=== PATIENT | female | born 1985 | race African-American/Black ===

== ENCOUNTER 2018-06-09 21:56 | Inpatient (IN) | END 2018-06-10 18:00 | disposition home or self-care (01) | DRG 831 ==

== ENCOUNTER 2018-06-19 12:26 | Outpatient (CLI) | END 2018-06-19 15:50 | disposition home or self-care (01) ==

== ENCOUNTER 2018-07-01 16:53 | Outpatient (CLI) | END 2018-07-01 18:28 | disposition home or self-care (01) ==

== ENCOUNTER 2018-07-11 16:46 | Outpatient (CLI) | END 2018-07-11 22:57 | disposition home or self-care (01) ==

== ENCOUNTER 2018-08-04 07:08 | Inpatient (IN) | payer OTHER ==
[~2018-08-04] VITALS: Ht 175.3 cm; Wt 100.2 kg
[~2018-08-04 07:08] MED LIST: PNV11TAB PO
[2018-08-04 07:31] VITALS: Ht 175.3 cm; Wt 100.2 kg
[2018-08-04 07:32] VITALS: BP 122/77; PULSE 108; RESP 20
[2018-08-04] MEDS ORDERED: LACTATED RINGER'S 1,000 ML IV SCH ×2 (07:35→09:34)
[2018-08-04] MEDS ORDERED: CARBOPROST 250 MCG INJ IM PRN ×2 (08:00→10:00)
[2018-08-04] MEDS ORDERED: OXYTOCIN 30 UNITS/LR 500 ML IV SCH ×2 (08:00→09:34)
[2018-08-04] MEDS ORDERED: MISOPROSTOL 200 MCG TAB PR PRN ×2 (08:00→10:00)
[2018-08-04] MEDS ORDERED: OXYTOCIN 30 UNITS/LR 500 ML IV PRN ×2 (08:00→10:00)
[2018-08-04] MEDS ORDERED: METHYLERGONOVINE 0.2 MG INJ IM PRN ×2 (08:00→10:00)
[2018-08-04] MEDS ORDERED: CEFAZOLIN 2 GM/50 ML (PMX) 50 ML IVPB SCH (08:00)
--- NOTE | 2018-08-04 08:58 | PREOPHP ---
DATE OF ADMISSION: 08/04/2018 The patient is coming on the for a section. HISTORY OF PRESENT ILLNESS: This is a 33-year-old female, 1, para 0, with a twin , which is a dichorionic, diamniotic . The patient had seen me since 26 weeks of her at which time she was placed on Zoloft for some depression and she had been seen by the perinatologist, Dr. Baldwin and she had been referred to cardiology also for PVCs and she had been having a history of 2 fibroids, one 5.5 cm, 3.5 cm. She has been otherwise okay. She has been having NSTs and BPPs twice a week since 32 weeks of her for evaluation of the twin . She had no complications. ALLERGIES: SHE IS ALLERGIC TO MACROBID. SOCIAL HISTORY: She has no history of drugs or alcohol or smoking. The patient is at this time is being admitted for 37 weeks for delivery of twin , dichorionic, diamniotic, with second baby breech in presentation, first baby cephalic. FAMILY HISTORY: Diabetes on her father's side and hypertension on her mother. Otherwise, her history has been very healthy and she is having 2 twin girls. Her last period was 11/17/2017. The due date is 08/24/2018. REVIEW OF SYSTEMS: Noncontributory at this time. At the beginning of the , she was found to have PVCs that resolved. PHYSICAL EXAMINATION: VITAL SIGNS: The patient has a prepregnancy weight of 180 pounds and at this time, she is 223 pounds, 43 pound weight gain. The blood pressure at the time of being seen in my office was 114/75. At this time, has been a little bit to 128/80 with no protein in the urine, no signs of preeclampsia. The pulse is 80, respirations 16. HEAD AND NECK: Normal. CHEST: Clear. HEART: Normal sinus rhythm. LUNGS: Clear. BREASTS: Soft, nontender, no masses. ABDOMEN: Soft. Uterus at term with baby A cephalic, baby B breech, and both with normal heart tones. PELVIC: Cervix is closed, long and posterior with membranes intact and no presentation in the pelvis. EXTREMITIES: Normal with normal pulses, no edema. Normal reflexes. DIAGNOSES: A 37 weeks twin , dichorionic diamniotic with abnormal presentation, fibroid uterus. PLAN: She is undergoing a primary section. She has been advised of the possible risks and possible complications of the surgery with her alternatives and options. Written information was provided. She had no more questions and agreed to go ahead with the procedure. The patient was diagnosed recently being O negative with anti-c and anti-e antibodies and the significance of this will be seen at since at this time there are no signs that the babies have any problems and the advise of delivery is because twin with abnormal presentation and also for these antibodies not to be worsening in her system. The procedure is primary low segment transverse section. She is agreeing to go ahead with the procedure. Dictated By: LEBRON PEPPER/SHANNAN Conf#: [id number] DID#: [id number] MTDD
[2018-08-04] MEDS ORDERED: CITRIC ACID/NA CITRATE 30 ML CUP PO ONE (09:00)
--- NOTE | 2018-08-04 09:38 | PREAC ---
Date/Time of Note Date/Time of Note DATE: 08/04/18 TIME: 09:37 Anesthesia Eval and Record Evaluation Time Pre-Procedure Interview DATE: 08/04/18 TIME: 09:37 Age 33 Sex female NPO: 8 hrs Preoperative diagnosis twin Planned procedure c section Past Medical History Past Medical History: Includes Surgery & Anesthesia Issues No known issue Meds Anticoagulation: No Beta Candice within 24 hr: No Reason Beta Candice not given: Pt. not on B-Candice Reported Medications [id number] ( 19) 1 Each Tablet, 1 TAB PO DAILY, TAB 08/01/18 Current Medications Lactated Ringer's 1,000 ml @ 125 mls/hr Q8H IV Last administered on 08/04/18at 08:06; Admin Dose 125 MLS/HR; Start 08/04/18 at 07:35 Cefazolin Sodium/ Dextrose 50 ml @ 100 mls/hr ONCE IVPB ; Start 08/04/18 at 08:00 Oxytocin/Lactated Ringer's 500 ml @ 125 mls/hr POST IV ; Start 08/04/18 at 08:00 Oxytocin/Lactated Ringer's 500 ml @ 0 mls/hr ONCE PRN IV VAGINAL BLEEDING; Start 08/04/18 at 08:00 Methylergonovine Maleate (Methergine) 0.2 mg ONCE PRN IM VAGINAL BLEEDING; Start 08/04/18 at 08:00 Carboprost Tromethamine (Hemabate) 250 mcg ONCE PRN IM VAGINAL BLEEDING; Start 08/04/18 at 08:00 Misoprostol (Cytotec) 1,000 mcg ONCE PRN VA VAGINAL BLEEDING; Start 08/04/18 at 08:00 Meds reviewed: Yes Allergies Coded Allergies: nitrofurantoin (Verified Allergy, Unknown, 06/09/18) Allergies Reviewed: Yes Labs/Studies Labs Reviewed: Reviewed by anesthesiologist Result Diagram: 08/04/18 0730 Laboratory Tests 08/04/18 07:30 test: Positive Studies: ECG (n/a), CXR (n/a) Pre-procedure Exam Last vitals Vital Signs Date Temp Pulse Resp B/P (MAP) Pulse Ox O2 O2 Flow FiO2 Time Delivery Rate 08/04/18 98.7 108 20 122/77 Room Air 07:32 (92) Airway: Adequate mouth opening Mallampati: Mallampati I Teeth: Normal Lung: Normal Heart: Normal ASA Physical Status ASA physical status: 2 Emergency: None Planned Anesthetic Neuraxial: Spinal Planned Pain Management Sub-arachniod narcotics Pre-operative Attestations Prior to commencing anesthesia and surgery, the patient was re-evaluated, there was verification of: *The patient's identity *The results of appropriate recent lab work and preoperative vital signs *The above evaluation not changing prior to induction *Anesthetic plan, risk benefits, alternative and complications discussed with patient/family; questions answered; patient/family understands, accepts and wishes to proceed. CALLIE GALAN MD Aug 04, 2018 09:38
[2018-08-04] MEDS ORDERED: LANOLIN HPA 1 PKT TOP PRN (10:00)
[2018-08-04] MEDS ORDERED: METHYLERGONOVINE 0.2 MG TAB PO PRN (10:00)
[2018-08-04] MEDS ORDERED: NA PHOSPHATE/BIPHOS 133 ML ENEMA PR PRN (10:00)
[2018-08-04] MEDS: CEFAZOLIN 2 GM/50 ML (PMX) 50 ML IVPB SCH ×2 (10:00→17:48)
[2018-08-04] MEDS ORDERED: morphine SULFATE/PF (10 MG/10 ML) INJ ONE (10:01)
[2018-08-04] MEDS ORDERED: METOCLOPRAMIDE 10 MG INJ ONE (10:01)
[2018-08-04] MEDS ORDERED: KETOROLAC 30 MG INJ ONE (10:01)
[2018-08-04] MEDS ORDERED: ONDANSETRON 4 MG INJ ONE (10:01)
[2018-08-04] MEDS ORDERED: FENTAnyl 50 MCG/ML VIAL ONE ×2 (10:48→10:51)
[2018-08-04] MEDS ORDERED: OXYTOCIN 30 UNITS/LR 500 ML IV ONE (11:20)
[2018-08-04] MEDS ORDERED: PHENYLephrine (100 MCG/ML) 10ML SYG ONE (11:30)
--- NOTE | 2018-08-04 11:44 | SIPON ---
Date/Time of Note Date/Time of Note DATE: 08/04/18 TIME: 11:40 Operative Report Preoperative Diagnosis 37 weeks twin Dichorionic diamniotic AnTI little C and ANTI little E antibodies Rh- Postoperative Diagnosis Same Baby a breech presentation 6 pounds Baby B cephalic presentation 5 pound 13 ounces Large segmental fibroid about 6 cm Large fundal fibroid about 6 cm Endometriosis Operation/Procedure Performed Primary low segment transverse section Surgeon see signature line assistant speech language pathologist Dr. Trejo Anesthesia: spinal Estimated blood loss: other Transfusion Required none Specimen Placenta Grafts/Implants none Complications none LEBRON MONTEZ MD Aug 04, 2018 11:44
--- NOTE | 2018-08-04 11:45 | PAC ---
Date/Time of Note Date/Time of Note DATE: 08/04/18 TIME: 11:45 Post-Anesthesia Notes Post-Anesthesia Note Last documented vital signs Vital Signs Date Temp Pulse Resp B/P (MAP) Pulse Ox O2 O2 Flow FiO2 Time Delivery Rate 08/04/18 98.7 108 20 122/77 97 Room Air 07:32 (92) Activity: WNL Respiratory function: WNL Cardiovascular function: WNL Mental status: Baseline Pain reasonably controlled: Yes Hydration appropriate: Yes Nausea/Vomiting absent: No CALLIE GALAN MD Aug 04, 2018 11:45
[2018-08-04] MEDS ORDERED: NALOXONE (0.4 MG/ML) INJ IV PRN (12:00)
[2018-08-04] MEDS ORDERED: KETOROLAC 30 MG INJ IV PRN (12:00)
[2018-08-04] MEDS ORDERED: morphine (1 MG/ML) 10ML SYRINGE IV PRN ×3 (12:00)
[2018-08-04] MEDS ORDERED: morphine 4 MG/ML VIAL IV PRN ×3 (12:00)
[2018-08-04] MEDS ORDERED: DIPHENHYDRAMINE 50 MG INJ IV PRN ×2 (12:00)
[2018-08-04] MEDS ORDERED: ONDANSETRON 4 MG INJ IV PRN ×2 (12:00)
--- NOTE | 2018-08-04 13:36 | OPR ---
DATE OF OPERATION: 08/04/2018 PROCEDURE: Primary low segment transverse section. PREOPERATIVE DIAGNOSES: A 37 weeks twin , dichorionic diamniotic with anti-c and anti-e antibodies with Rh negative. POSTOPERATIVE DIAGNOSES: A 37 weeks twin , dichorionic diamniotic with anti-c and anti-e antibodies with Rh negative, baby A breech presentation, 6 pounds, baby B cephalic presentati on, 5 pounds and 13 ounces, large, multiple fibroid uterus, endometriosis. COMPLICATIONS: None. PROCEDURE IN DETAILS: The patient was given spinal anesthesia, placed in the supine position. The a bdomen was prepped and draped. A Dixon catheter was placed in the bladder. A transverse incision of about 10 cm in length was done suprapubically 2 cm above the pubic bone. The abdomen was opened in layers without difficulties. Abdominal cavity was reached. The Moncho retractor was placed. The bl adder flap was made. The uterus was opened in the midline with a scalpel and the incision was increa sed laterally to either side for about 3 inches. The baby's breech was first delivered as a footling breech first one leg then the next and the body was brought out and delivering the shoulders and the n the head finally which was crooked and pushed by the water bag from the second baby. Increased inc ision was done on that side to deliver the baby's head which was within the normal recovery. The cor d was clamped and cut. The baby was handed over to the patient case coordinator team and the second baby's bag was opened and the head was delivered followed by the body. It was another baby girl, 9. The cord was clamped and cut and then at this time, the cord blood was obtained from baby B and baby A. The placenta was removed by candace the uterus with pressure and the cavity was cleaned out from blood products. The cervix was opened with my finger and I changed gloves. The uterus contracted. There was a large fibroid on top of the segmental area of the uterus that was about 6 cm in diameter that did not get involve in the incision. There was fibroid also that was on the fundus on the right side towards the right side that was large as well. The uterus contracted after the delivery of the placenta. The uterus was closed in 2 layers using #0 PDS looped suture for the first layer and seco nd layer. Couple of stitches was placed with 0 MH to control the bleeding. The cavity was ____ unde r water with no active bleeding. The tubes and ovaries were normal. There were some signs of endome trial implants on the adnexal area and on top of the uterus that were ____. The abdominal cavity was cleaned out and again, a piece of Interceed was placed on the incisional area for prevention of adhe sions. The peritoneum was closed with a 2-0 Vicryl. The fascia was closed with an 0 PDS looped sutur e, 2-0 Vicryl for the subcutaneous tissue, 3-0 Monocryl subcuticular to the skin, Dermabond and Steri -Strips. The patient tolerated the procedure well and left the OR awake and stable. Sponge counts, instrument counts were correct. Intravenous antibiotics were given for prophylaxis. Blood loss was about 600 mL and the urine was clear at the end of the procedure. Dictated By: LEBRON PEPPER/SHANNAN Conf#: [id number] DID#: [id number]
[2018-08-04] MEDS: IBUPROFEN 800 MG TAB PO SCH ×2 (14:00→22:00)
[2018-08-04] MEDS: KETOROLAC 30 MG INJ IV SCH ×3 (14:14→21:42)
[2018-08-04 15:00] VITALS: BP 133/73; PULSE 89; RESP 18
--- NOTE | 2018-08-04 15:00 | NUR ---
ADMITTED PATIENT WITH BABY TWIN GIRLS. PT IS COMFORTABLE AND STABLE, DENIES PAIN. FUNDUS FIRM, AND MODERATE. ID BANDS CHECKED. ORIENTED PT TO ROOM AND UNIT. CALL LIGHT ON REACH. EDUCATED PT WITH BREAST MASSAGE, HAND EXPRESSION AND BREAST FEEDING. Addendum: 08/04/18 at 1740 by NICKI AMATO RN Amended: Links added.
--- NOTE | 2018-08-04 16:00 | NUR ---
ASSISTED WITH BREAST FEEDING. EDUCATED MOTHER OF TWINS HOW TO BREAST MASSAGE, HAND EXPRESSED, AND A DEEP LATCH. COLOSTRUM EXPRESSED. PLACED BOTH BABY GIRLS ON EACH BREAST, GOOD LATCH, STRONG SUCK NOTED. SIDE RAILS UP, REINFORCING SAFETY, PT IS COMFORTABLE. Addendum: 08/04/18 at 1837 by NICKI AMATO RN Amended: Links added.
[2018-08-04 18:00] VITALS: BP 125/70; PULSE 78; RESP 18
--- NOTE | 2018-08-04 18:37 | NUR ---
EOSS: PT IS STABLE, PERICARE ASSISTED, MODERATE LOCHIA, DENIES PAIN. DENIES NAUSEA NOR VOMMITTING. TOLERATING CLEAR LIQUIDS WELL. BONDING WELL WITH BABIES. Addendum: 08/04/18 at 1838 by NICKI AMATO RN Amended: Links added.
[2018-08-04 19:30] VITALS: BP 140/80; PULSE 87; RESP 18
[2018-08-04] MEDS: SENNA/DOCUSATE NA (8.6MG/50MG) TAB PO SCH (21:20)
[2018-08-05] VITALS: BP 125/71; PULSE 69; RESP 18
[2018-08-05] MEDS: CEFAZOLIN 2 GM/50 ML (PMX) 50 ML IVPB SCH (02:53)
[2018-08-05] MEDS: LACTATED RINGER'S 1,000 ML IV SCH ×2 (02:54→09:05)
[2018-08-05 04:00] VITALS: BP 137/80; PULSE 66; RESP 18
[2018-08-05] MEDS: KETOROLAC 30 MG INJ IV SCH ×2 (04:06→09:46)
--- NOTE | 2018-08-05 04:52 | NUR ---
EOSS: Patient's vital signs are stable, post delivery and pain management protocol effective. Passing gas and is tolerating fluids no nausea nor no vomiting noted. No adverse reactions from ATB IVPB Ancef. Bonding well with twins and plan of care ongoing.
[2018-08-05] MEDS: IBUPROFEN 800 MG TAB PO SCH ×3 (06:00→21:59)
--- NOTE | 2018-08-05 06:50 | NUR ---
Offered to give Rhogam as needed and ordered ,but pt. wants it to be given by 1000.
[2018-08-05 08:00] VITALS: BP 134/75; PULSE 84; RESP 18
[2018-08-05] MEDS: SENNA/DOCUSATE NA (8.6MG/50MG) TAB PO SCH ×2 (08:25→21:00)
--- NOTE | 2018-08-05 11:49 | PN ---
Date/Time of Note Date/Time of Note DATE: 08/05/18 TIME: 11:47 Assessment/Plan Lines/Catheters IV Catheter Type (from Nrsg): Peripheral IV Subjective 24 Hr Interval Summary Day 1 post Afebrile Feeding both babies Pain controlled Tolerating regular diet Abdomen soft, tympanic, incision dry, uterus contracted, lochia normal. No history of headaches dizziness or epigastric pain no double vision. Reflexes are normal Vitals are stable CBC near normal Constitutional: no complaints Feeding: advancing diet Pain Control: mild Detailed Summary Eyes: no complaints ENT: no complaints Respiratory: no complaints Cardiovascular: no complaints Gastrointestinal: no complaints Genitourinary: no complaints Musculoskeletal: no complaints Skin: no complaints Neurologic: no complaints Endocrine: no complaints Lymphatic: no complaints Psychological: no complaints, nl mood/affect Immunologic: no complaints Exam/Review of Systems Vital Signs Vitals Vital Signs Date Temp Pulse Resp B/P (MAP) Pulse Ox O2 O2 Flow FiO2 Time Delivery Rate 08/05/18 98.7 84 18 134/75 98 Room Air 08:00 (94) Intake and Output 08/04/18 08/04/18 08/05/18 1515:00 23:00 07:00 IntakeIntake Total 3288 ml OutputOutput Total 1024 ml 600 ml 1400 ml BalanceBalance 2264 ml -600 ml -1400 ml Exam Constitutional: alert, oriented, well developed Psych: no complaints, nl mood/affect Head: normocephalic, atraumatic Eyes: nl conjunctiva, EOMI, nl lids, nl sclera ENMT: nl external ears & nose, nl lips & teeth, nl nasal mucosa & septum, mucos a pink and moist Neck: supple, non-tender Respiratory: clear to auscultation, normal air movement Cardiovascular: regular rate and rhythm, nl pulses Gastrointestinal: soft, nl liver, spleen, non-tender Musculoskeletal: nl extremities to inspection, nl gait and stance Extremities: normal pulses Neurological: PRESIDENT AND CEO II-XII intact, nl mental status, nl speech, nl strength Skin: nl turgor, rash or lesions Lymph: nl lymph nodes Results Result Diagram: 08/05/18 0723 LEBRON MONTEZ MD Aug 05, 2018 11:49
[2018-08-05] MEDS ORDERED: BISACODYL (EC) 5 MG TAB PO ONE (12:00)
[2018-08-05] MEDS ORDERED: ZOLPIDEM 5 MG TAB PO PRN (12:00)
[2018-08-05 15:51] VITALS: BP 127/87; PULSE 101; RESP 18
--- NOTE | 2018-08-05 17:05 | NUR ---
EOSS VSS VOIDING WITHOUT DIFFICULTY, AMBULATING WELL. AND BONDING WELL WITH TWINS. RHOGAM GIVEN TODAY.
--- NOTE | 2018-08-05 18:03 | NUR ---
PT UP TO SHOWER. INCISION AND STERI STRIPS CLEAN DRY INTACT
--- NOTE | 2018-08-05 18:40 | OPPN ---
Date/Time of Note Date/Time of Note DATE: 08/05/18 TIME: 18:37 Anesthesia Follow up Anesthesia Follow up Last documented vital signs Vital Signs Date Temp Pulse Resp B/P (MAP) Pulse Ox O2 O2 Flow FiO2 Time Delivery Rate 08/05/18 97.9 101 18 127/87 Room Air 15:51 (100) 08/05/18 98 08:00 Respiratory function: WNL Cardiovascular function: WNL Comments A 33 year female s/ p spinal duramorph for post op pain Pod#1 is doing fine. No pain, itching, N/V, headache. no neural deficit CALLIE GALAN MD Aug 05, 2018 18:40
[2018-08-05 20:32] VITALS: BP 136/79; PULSE 89; RESP 18
[2018-08-05] MEDS: HYDROCODONE/APAP (5/325) TAB PO PRN (20:32)
[2018-08-06] MEDS: HYDROCODONE/APAP (5/325) TAB PO PRN ×5 (01:09→22:01)
[2018-08-06 04:12] VITALS: BP 130/85; PULSE 91; RESP 18
--- NOTE | 2018-08-06 04:31 | NUR ---
EOSS: Patient's post delivery and pain management protocol effective.Encouraged to ambulate and actively participate in care.Voiding without difficulty no BM. Bonding well with babies Plan of care ongoing.
[2018-08-06] MEDS: IBUPROFEN 800 MG TAB PO SCH ×3 (05:31→21:31)
[2018-08-06] MEDS: SENNA/DOCUSATE NA (8.6MG/50MG) TAB PO SCH ×2 (08:16→21:31)
[2018-08-06 08:30] VITALS: BP 119/72; PULSE 85; RESP 18
[2018-08-06] MEDS ORDERED: BISACODYL (EC) 5 MG TAB PO ONE ×2 (08:30→11:00)
[2018-08-06 16:42] VITALS: BP 136/76; PULSE 86; RESP 19
[2018-08-06 20:15] VITALS: BP 145/79; PULSE 88; RESP 19
--- NOTE | 2018-08-06 20:22 | PN ---
Date/Time of Note Date/Time of Note DATE: 08/06/18 TIME: 20:20 OB Subjective Subjective Subjective POD#2 Patient is doing well. She denies nausea, vomiting, shortness of breath, chest pain, headache. She has been ambulating without difficulty, tolerating regular diet. Pain is well controlled on current medications OB Objective Objective Objective General: AAO X 3, comfortable, NAD, appropriate mood and affect. Heart: RRR +S1, +S2, no murmurs. Incision: Clear, dry, intact. No erythema, drainage or induration. Flank: No CVA tenderness (B/L) LE: Mild edema. No clubbing, cyanosis, thigh or calf tenderness (B/L). Homans 'sign is negative OB Assessment/Plan Other plan: 33-year-old with dichorionic diamniotic twin gestation s/p primary delivery POD#2 - AF, VSS - Babies are doing well, at bed side. She is bonding well - Continue care - Follow-up with primary OB RAPHAEL MONROE Aug 06, 2018 20:22
[2018-08-06] MEDS ORDERED: MAGNESIUM HYDROXIDE 30ML CUP PO PRN (21:30)
[2018-08-06] MEDS ORDERED: ZOLPIDEM 5 MG TAB PO PRN (21:30)
[2018-08-06] MEDS ORDERED: MAGNESIUM HYDROXIDE 30ML CUP PO ONE (21:30)
[2018-08-06] MEDS: DIPHENHYDRAMINE 50 MG CAP PO PRN (23:47)
[2018-08-07] MEDS: HYDROCODONE/APAP (5/325) TAB PO PRN ×6 (02:02→20:45)
[2018-08-07 04:10] VITALS: BP 128/88; PULSE 87; RESP 18
[2018-08-07] MEDS: IBUPROFEN 800 MG TAB PO SCH ×3 (05:30→21:36)
--- NOTE | 2018-08-07 06:17 | NUR ---
EOSS: vital signs stable,voiding without difficulty,pain controlled with motrin and norco,patient ambulated in the hallway twice this shift,abdomen slightly distended but positive bowel sound and passing gas,patient refused MOM and fleets enema,bonding with her babies,hourly rounding and rounding every 30 minutes and PRN maintained.
[2018-08-07 08:00] VITALS: BP 132/74; PULSE 84; RESP 16
[2018-08-07] MEDS ORDERED: MEASLES,MUMPS,RUBELLA VACCINE INJ SC* ONE (09:00)
[2018-08-07] MEDS: SENNA/DOCUSATE NA (8.6MG/50MG) TAB PO SCH ×2 (09:00→21:00)
[2018-08-07] MEDS ORDERED: DIPHTH/TET/ACEL PERTUSS (ADULT) 0.5 ML VIAL IM* ONE (09:00)
--- NOTE | 2018-08-07 10:59 | PN ---
Date/Time of Note Date/Time of Note DATE: 08/07/18 TIME: 10:57 Assessment/Plan Lines/Catheters IV Catheter Type (from Nrsg): Peripheral IV Subjective 24 Hr Interval Summary Day 3 after Afebrile, passing gases but with no bowel movement yet Abdomen distended with some ileus Bowel sounds are present but faint Encouraged ambulation We will keep her until she has a bowel movement Incision dry Uterus contracted lochia normal. Pain has been intolerable by p.o. meds Constitutional: no complaints Feeding: advancing diet Pain Control: moderate Detailed Summary Eyes: no complaints ENT: no complaints Respiratory: no complaints Cardiovascular: no complaints Gastrointestinal: no complaints Genitourinary: no complaints Musculoskeletal: no complaints Skin: no complaints Neurologic: no complaints Endocrine: no complaints Lymphatic: no complaints Psychological: no complaints, nl mood/affect Immunologic: no complaints Exam/Review of Systems Vital Signs Vitals Vital Signs Date Temp Pulse Resp B/P (MAP) Pulse Ox O2 O2 Flow FiO2 Time Delivery Rate 08/07/18 97.5 84 16 132/74 Room Air 08:00 (93) 08/05/18 98 08:00 Exam Constitutional: alert, oriented, well developed Psych: no complaints, nl mood/affect Head: normocephalic, atraumatic Eyes: nl conjunctiva, EOMI, nl lids, nl sclera ENMT: nl external ears & nose, nl lips & teeth, nl nasal mucosa & septum, mucosa pink and moist Neck: supple, non-tender Respiratory: clear to auscultation, normal air movement Cardiovascular: regular rate and rhythm, nl pulses Gastrointestinal: soft, nl liver, spleen, non-tender Musculoskeletal: nl extremities to inspection, nl gait and stance Extremities: normal pulses Neurological: FUR TRIMMER II-XII intact, nl mental status, nl speech, nl strength Skin: nl turgor, rash or lesions Lymph: nl lymph nodes Results Result Diagram: 08/06/18 0643 LEBRON MONTEZ MD Aug 07, 2018 10:59
[2018-08-07 16:00] VITALS: BP 139/88; PULSE 81; RESP 16
--- NOTE | 2018-08-07 18:09 | NUR ---
EOSS: Patient's pain is well controlled during this shift. She had a BM and is ambulating well in her room and around the unit. She is bonding well with her babies and is moving towards goals.
[2018-08-07 19:50] VITALS: BP 128/69; PULSE 89; RESP 19
[2018-08-07] MEDS: DIPHENHYDRAMINE 50 MG CAP PO PRN (22:34)
[2018-08-08] MEDS: HYDROCODONE/APAP (5/325) TAB PO PRN ×2 (00:45→06:21)
--- NOTE | 2018-08-08 05:10 | NUR ---
EOSS: vital signs stable,pain controlled with motrin and norco,bonding well with her babies,hourly rounding and rounding every 30 minutes between [id number] and PRN maintained.
[2018-08-08 08:30] VITALS: BP 139/69; PULSE 76; RESP 16
[2018-08-08] MEDS: SENNA/DOCUSATE NA (8.6MG/50MG) TAB PO SCH (09:00)
[2018-08-08] MEDS: IBUPROFEN 800 MG TAB PO SCH ×2 (09:04→14:00)
--- NOTE | 2018-08-08 10:06 | PD.PPDC ---
WARP PREPARER Discharge Instruction Condition [id number] Patient Condition: Vltif6o Good Diet Fshds3Us Diet: Cbmsa5h Resume Regular Diet Activity/Restrictions [id number] Activity: Nzjuo6d Normal Activity May Shower [id number] Restrictions: Eobac9i No Exercising No Lifting No Driving No Sexual Activity Nothing in the Vagina No [place] No Tampons, douche Wound/Drain Care Instructions [id number] Wound/Drain Care Instructions: Xfnal8t Wash with soap and water Keep clean and dry Follow-up Follow-up with Physician: 1, Week/Weeks Return to clinic for Sibxm0Cb [employer] Instructions: Knbdx7g Fever greater than 101 Chills Worsening abdominal pain Excessive Vaginal Bleeding More than 2 pads per hour Unable to tolerate diet [id number] OB Instructions: Svzpl6t Breast Tenderness Depression Blurried Vision Headache [id number] Surgical Instructions: Qxcka8d Incisional Drainage Incisional Redness LEBRON MONTEZ MD Aug 08, 2018 10:06
--- NOTE | 2018-08-08 10:13 | DS ---
Date/Time of Note Date/Time of Note DATE: 08/08/18 TIME: 10:08 Obstetrical Discharge Record Final Diagnosis Final Diagnosis: Term delivered Other Final Diagnosis 37 weeks twin gestation. Abnormal presentation Section Section: Primary Complications Multiple Gestation Condition on Discharge Physical Assessment Voiding: Yes Bowel Movement: Yes Breast: Soft, non-tender Abdomen and Incision: Patient was admitted for primary section at 37 weeks with twin gestation and abnormal presentation She did very well after the but she was having a hard time passing gases with some ileus for which she was giving an extra day . She is afebrile she has been moving around very busy with both twins breast- feeding Her abdomen with still some gassiness but better. Incision is healing very well Incision is healing very well She is tolerating diet, voiding well, and ambulatory. Uterus is contracted. Lochia is normal Extremities normal with normal reflexes and no edema. Patient is stable to go home on ibuprofen and Tylenol No. 3 Calf Tenderness: No Patient Condition: Good LEBRON MONTEZ MD Aug 08, 2018 10:13
--- NOTE | 2018-08-08 14:15 | NUR ---
Patient anticipating to go home within the next hour. Vital signs stable. Bonding well with babies. Teaching done. All questions answered. Patient states she feels comfortable and doesn't need pain medication at this time. She took a shower and is getting more independent with self and babies care.
--- NOTE | 2018-08-08 15:00 | NUR ---
Advised by Kriss River (Charge Nurse) and Dorcas Montenegro (Clinical Acute Specialist) not to go back to Patient's room. Dorcas Montenegro Clinical outbound supervisor went to room to process discharge for Patient and her babies.
--- NOTE | 2018-08-08 16:45 | NUR ---
Patient left in stable condition. Accompanied by her two babies and Patient's Mother.
== END 2018-08-08 16:50 | disposition home or self-care (01) | DRG 832 ==
LOC: L-D 07:08 → PP1 14:59
PROVIDERS: ADMIT Obstetrics & Gynecology; ATTEND Obstetrics & Gynecology
DX: O32.1XX1 Maternal care for breech presentation, fetus 1 (principal); K56.7 Ileus, unspecified; O34.13 Maternal care for benign tumor of corpus uteri, third trimester; D25.9 Leiomyoma of uterus, unspecified; O75.89 Other specified complications of labor and delivery; N80.0 Endometriosis of uterus; O30.043 Twin pregnancy, dichorionic/diamniotic, third trimester; G89.18 Other acute postprocedural pain; Z3A.37 37 weeks gestation of pregnancy; Z37.2 Twins, both liveborn
CPT/HCPCS: 85025; 85610; 85730; 86592; 86850; 86870; 86885; 86900; 86901; 87340; 88307; 99464; J0690; J1200; J1885; J2274; J2370; J2405; J2590; J2765; J2790; J3010; J7120

== ENCOUNTER 2018-09-05 21:40 | Outpatient (CLI) | payer OTHER ==
[2018-09-05 22:00] VITALS: BP 169/97; PULSE 72; RESP 18
[2018-09-05] MEDS ORDERED: ACETAMINOPHEN 500 MG TAB PO STA (22:14)
[2018-09-05] MEDS ORDERED: LABETALOL HCL 20MG INJ IV STA (22:52)
[2018-09-05] MEDS: LACTATED RINGER'S 1,000 ML IV SCH (22:58)
[2018-09-06] MEDS ORDERED: NIFEdipine (XL) 30 MG TAB PO ONE (01:00)
[2018-09-06] MEDS: LACTATED RINGER'S 1,000 ML IV SCH (04:16)
[2018-09-06] MEDS ORDERED: LISI10TA2 PO (06:31)
[2018-09-06] MEDS ORDERED: LABE200T25 PO (06:31)
--- NOTE | 2018-09-24 22:01 | QN ---
Documentation Comment Late entry note. 33 years old 1 para 1002 who had delivery for twin gestation at approximately 4 weeks ago. She presented to triage with complaint of elevated blood pressure. She denies nausea, vomiting, shortness of breath, chest pain, headache, visual changes. She discharged home on labetalol, however the patient states did not take her prescription in the last few days. Physical exam: General: Patient appears well, alert and oriented, NAD, appropriate mood and affect Regular rhythm and rate Lungs clear to auscultation ABD: soft, non-tender. Back: No CVA tenderness (B/L) LE: Mild edema. No clubbing, cyanosis, edema, thigh or calf tenderness bilaterally Assessment and plan: 33 years old 1 para 1002 s/p delivery for twin gestation with gestational hypertension versus essential hypertension, she has no symptom of preeclampsia with severe features. Labetalol per her prescription given. She was observed in triage for a few hours. Her blood pressure was controlled with home medication. She discharged home in stable condition. I strongly recommend follow-up with her primary OB. - RAPHAEL MONROE Sep 24, 2018 22:01
== END 2018-09-06 07:50 | disposition home or self-care (01) ==
LOC: L-D 21:40 → OBT 21:40
PROVIDERS: ATTEND Obstetrics & Gynecology
DX: O16.5 Unspecified maternal hypertension, complicating the puerperium (principal)
CPT/HCPCS: 80053; 81001; 84560; 85025; 85610; 85730; 96360; 96361; J7120; Z7500; Z7610; G0463